=== PATIENT | female | born 1975 ===

== ENCOUNTER 2017-06-11 05:43 | Day surgery (SDC) | payer OTHER ==
[2017-06-11 06:21] VITALS: BMI 39.9
[2017-06-11 07:02] LABS: BASO % 0.7 % (0.0-2.0); EOS % 0.7 % (0.0-4.0); HEMATOCRIT 33.4 % (34.0-47.0); LYMPH # 1.4 K/uL (1.0-4.3); LYMPH % 23.4 % (20.0-40.0); MEAN CELL VOLUME 81.2 fL (81.0-99.0); MEAN CORPUSCULAR HEMOGLOBIN 26.1 pg (27.0-31.0); MEAN CORPUSCULAR HGB CONC 32.1 g/dL (33.0-37.0); MEAN PLATELET VOLUME 8.1 fL (7.2-11.7); MONO # 0.3 K/uL (0.0-0.8); MONO % 5.2 % (0.0-10.0); RED CELL DISTRIBUTION WIDTH 14.4 % (11.5-14.5)
[2017-06-11] MEDS ORDERED: Lactated Ringer's 1,000 ML IV ONE ×2 (07:34)
[2017-06-11] MEDS ORDERED: Bupivacaine HCl 0.25% PF (10 ml) Inj ONE (07:42)
[2017-06-11] MEDS ORDERED: Midazolam 2 MG/2 ML VIAL ONE (07:42)
[2017-06-11] MEDS ORDERED: Propofol 10 mg/ml Inj (20 ML) ONE (07:42)
[2017-06-11 07:46] VITALS: O2SAT 100
[2017-06-11] MEDS: Gentamicin 80 mg in 0.9% NS 80 MG/100 ML BAG IVPB ONE ×2 (07:55→08:00)
[2017-06-11] MEDS ORDERED: Clindamycin 600mg/50ml NS 600 MG/50 ML BAG IVPB STA (08:09)
[2017-06-11] MEDS ORDERED: Neostigmine Methylsulfate 3mg/3ml Syringe IV ONE (08:40)
[2017-06-11] MEDS ORDERED: HYDROmorphone 0.5 mg/0.5 ml ISec IVP PRN (09:02)
[2017-06-11] MEDS ORDERED: Lactated Ringer's 1,000 ML IV SCH (09:15)
[2017-06-11 11:13] VITALS: RESP 18
[2017-06-11 11:30] VITALS: BP 159/88; PULSE 62; TEMP 97.8
--- NOTE | 2017-06-11 20:39 | OP ---
PROCEDURE DATE: 06/11/2017 PREOPERATIVE DIAGNOSES: Pelvic pain, right ovarian cyst, and menorrhagia. POSTOPERATIVE DIAGNOSES: Pelvic adhesions, right follicular cyst ruptured, and endometriosis. SURGEON: Anuel Guerra MD TYPE OF ANESTHESIA: General. FINDINGS: Left ovarian endometriotic implant. The uterus is adherent to the posterior rectus sheath. The right ovary has a unilateral 2 cm follicular cyst and a ruptured right ovarian cyst, not bleeding and about 30 mL of straw-colored fluid in the posterior cul-de-sac. There are also adhesions involving the omentum and anterior abdominal wall. ESTIMATED BLOOD LOSS: Less than 1 mL. COMPLICATIONS: There were no complications. DESCRIPTION OF PROCEDURE: After the risks, benefits, and alternatives of the planned procedures including, but not limited to infection, hemorrhage, deep vein thrombosis, atelectasis, pneumonia, pulmonary embolism, damage to the bladder, damage to the ureter, renal insufficiency, renal failure, wound infection, wound dehiscence, incisional hernia, keloid formation, damage to large and small intestines, damage to inferior vena cava and aorta requiring extensive repair, anesthesia complications, electrolyte imbalance, possibility of , fluid overload, cerebral edema, air embolism, and other complications that were discussed, but are not listed above have been explained to the patient and all her questions answered and informed consent was obtained. The patient was taken to the operating room in a stable condition. Under a suitable level of general anesthesia, she was prepped and draped in a sterile fashion after having been placed in a dorsal lithotomy position. The bladder was emptied. The Pizarro catheter was inserted. Examination under anesthesia revealed a normal sized uterus, anteverted with no adnexal masses. A weighted speculum was inserted into the vagina and the anterior lip of cervix was grasped using a single-tooth tenaculum. Uterus was sounded 7 cm. The cervix was dilated by an 18 Hanks dilator. An endometrial curettage was performed and scant tissue was obtained. A HUMI-catheter was inserted into the cervix and insufflated into place. Through a left upper quadrant Bo's point incision 5 mm trochar sleeve was inserted. The trocar was removed and replaced by a laparoscope, which confirmed the findings noted above. A 5 mm punching site was made in the right iliac fossa through which a 5 mm trocar and sleeve were inserted. Trocar was removed and replaced by Endo Rafael scissors, which was used to lyse the adhesions involving the omentum and anterior abdominal wall. The uterus was firmly adherent to the posterior rectus sheath and adhesiolysis could not be performed without having to perform a hysterectomy. Right ovarian follicular cyst was drained and fluid was submitted for cytology together with the fluid from the right ruptured ovarian cyst, which was drained and submitted for cytology. The left ovarian endometrial implant was fulgurated using bipolar cautery. At the end of the procedure, peritoneal cavity was irrigated using copious amounts of saline. The saline was evacuated. The right iliac fossa sleeve was removed under laparoscopic guidance. Abdomen was deflated of carbon dioxide and the left upper quadrant sleeve was removed under laparoscopic guidance. The skin incisions were then closed using 4-0 Monocryl. Sponge, needle, and instrument counts were correct x2. There were no complications. Anuel Guerra MD
--- NOTE | 2017-06-14 13:19 | CARD ---
APPROVED REPORT EKG Measurement Heart [id number] <Conclusion> Sinus bradycardia T wave abnormality, consider anterior ischemia Abnormal ECG
== END 2017-06-11 12:15 | disposition home or self-care (01) ==
LOC: C.OPSURG 05:43
PROVIDERS: ATTEND Obstetrics & Gynecology Reproductive Endocrinology
DX: N83.201 Unspecified ovarian cyst, right side (principal); N83.01 Follicular cyst of right ovary; N80.1 Endometriosis of ovary
CPT/HCPCS: 36415; 49322; 58662; 84703; 85025; 85610; 85730; 86850; 86900; 88104; 88305; J1170; J1580; J2250; J2704; J2710; J3010; J7120